=== PATIENT | male | born 1970 | race Caucasian/White ===

== ENCOUNTER 2017-06-16 06:35 | Inpatient (IN) | payer BC ==
[2017-05-29 09:18] VITALS: BMI 24.0
--- NOTE | 2017-05-29 09:49 | PAT Medication Instructions ---
Service Date May 29, 2017. Current Home Medication List Ascorbic Acid (Vitamin C), 1,000 MG PO QAM Fish Oil ([place]-3), 1 CAP PO QAM Multivitamin (Multivitamin), 1 TAB PO QAM Naproxen (Aleve), 660 MG PO QPM Medication Instructions For Your Scheduled Surgery - Check with surgeon for instructions: Naproxen (Aleve), 660 MG PO QPM - Hold the following medications 2 weeks prior to surgery: Fish Oil ([place]-3), 1 CAP PO QAM - Hold the following medications the morning of surgery: Multivitamin (Multivitamin), 1 TAB PO QAM Ascorbic Acid (Vitamin C), 1,000 MG PO QAM If you have any questions please call us at [phone] or [phone] or [phone]
--- NOTE | 2017-05-29 10:27 | DIAGNOSTIC IMAGING REPORT ---
CHEST PREADMISSION(PA/LAT) CLINICAL HISTORY: PAT preoperative evaluation COMPARISON STUDY: No previous studies for comparison. FINDINGS: The bones soft tissues and hemidiaphragms are normal. The cardiomediastinal silhouette is normal. The lungs are clear. The pulmonary vasculature is normal. IMPRESSION: Negative chest. The above report was generated using voice recognition software. It may contain grammatical, syntax or spelling errors. Electronically signed by: Alin Irizarry M.D. 05/29/2017 10:26 AM Dictated Date/Time: 05/29/2017 10:25 AM
[2017-05-29 10:36] LABS: BASO % 1.1 %; BASO ABS # 0.07 K/uL (0-0.2); COMPLETE YES; EOS % 1.6 %; HEMATOCRIT 44.7 % (42-52); LYMPH % 32.2 %; LYMPH ABS # 2.02 K/uL (1.2-3.4); MEAN CELL VOLUME 93.3 fL (80-100); MEAN CORPUSCULAR HEMOGLOBIN 32.2 pg (25-34); MEAN CORPUSCULAR HGB CONC 34.5 g/dl (32-36); MEAN PLATELET VOLUME 9.4 fL (7.4-10.4); MONO % 9.3 %; NEUT % 55.8 %; PLATELET COUNT 245 K/uL (130-400); RED BLOOD COUNT 4.79 M/uL (4.7-6.1); WHITE BLOOD COUNT 6.27 K/uL (4.8-10.8)
[2017-05-29 10:39] LABS: URINE APPEARANCE CLEAR (CLEAR); URINE BILIRUBIN NEG (NEG); URINE COLOR YELLOW; URINE NITRITE NEG (NEG); URINE SPECIFIC GRAVITY 1.026 (1.000-1.030); UROBILINOGEN NEG (NEG)
[2017-05-29 10:43] LABS: BUN/CREATININE RATIO 27.7 (10-20); CALCIUM 8.8 mg/dl (8.5-10.1); CREATININE 0.66 mg/dl (0.60-1.40); POTASSIUM 4.4 mmol/L (3.5-5.1)
[2017-05-29 10:44] LABS: MANUAL MICROSCOPIC REQUIRED? NO; REVIEW REQ? NO
[2017-05-29 10:49] LABS: PROTHROMBIN TIME (PATIENT) 10.7 SECONDS (9.0-12.0)
--- NOTE | 2017-06-15 13:31 | HISTORY & PHYSICAL EXAMINATION ---
DATE OF ADMISSION: 06/16/2017 CHIEF COMPLAINT: Primary osteoarthritis of the right hip. HISTORY OF PRESENT ILLNESS: Jeison is a pleasant 46-year-old male who has been having right hip pain for about 14 years. This has gotten progressively worse. He has been having a hard time doing activities that he enjoys including golfing and hunting due to the pain and discomfort. It bothers him on a daily basis. He has pain is located in his groin and he is now starting to walk with a limp. X-rays and clinical examination were diagnostic for severe osteoarthritis of the right hip and after failing conservative treatment, he elected to proceed with a right total hip arthroplasty. PAST MEDICAL HISTORY: Denies. PAST SURGICAL HISTORY: None. ALLERGIES: None. MEDICATIONS: Include Aleve as needed for pain. FAMILY HISTORY: Noncontributory. SOCIAL HISTORY: He is single, has 1-2 drinks a day. He has a 20-year history of chewing tobacco and remains active. REVIEW OF SYSTEMS: He complains of severe right hip and groin pain. All other pertinent review of systems is negative. PHYSICAL EXAMINATION: GENERAL: He is awake, alert and oriented x3. He is in no apparent distress. He is very pleasant. HEENT: Pupils are equal, round and reactive to light. Extraocular motion intact. Oral mucosa is pink and moist. HEART: Regular rate per radial pulse. LUNGS: [place] symmetrically bilaterally with no audible breath sounds. ABDOMEN: Soft, nontender, and nondistended. MUSCULOSKELETAL: On physical examination of his right hip, he ambulates independently, but does have limp. He has significantly decreased motion with his hip with only about 90 degrees of flexion, 20 degrees of external rotation and 5 degrees of internal rotation. He has severe pain with forced internal rotation of his hip. No back pain. His leg lengths are essentially equal. He is neurovascularly intact. IMAGING DATA: X-rays of the right hip do show advanced osteoarthritis with joint space collapse, subchondral sclerosis and osteophyte formation. IMPRESSION: Advanced osteoarthritis of the right hip. PLAN: We will proceed with a Biomet right total hip arthroplasty. Postoperatively, he will be started on aspirin for DVT prophylaxis and kept in the hospital for postoperative medical management. KAVITHA
[~2017-06-16] VITALS: Ht 167.6 cm; Wt 68.9 kg
[2017-06-16] VITALS (8 sets, daily range): BP systolic 109–144; BP diastolic 68–92; PULSE 57–78; TEMP 36.6–37; O2SAT 96–99; Ht 167.6 cm; Wt 68.9 kg
[~2017-06-16 06:35] MED LIST: ACETAMINOPHEN 500 MG TAB PO SCH; ASCO10003 PO; CEFAZOLIN 2000 MG/60 ML D5W 60 ML IV SCH; FAMOTIDINE 20 MG TAB PO SCH; GABAPENTIN 300 MG CAP PO SCH; LACTATED RINGER'S 1000ML 1,000 ML IV SCH; LACTATED RINGER'S 1000ML IV SCH; MULT-506 PO; NAPR1TAB9 PO; OMEG10007 PO; ROPIVACAINE 5MG/ML 30 ML 150 MG, BUPIVACAINE/EPINEPHR 0.5% MPF 30 ML, KETOROLAC TROMETH... INFIL SCH
--- NOTE | 2017-06-16 06:43 | History & Physical Bridge Note ---
H&P Re-Evaluation Bridge Note: I have examined the patient, reviewed the History & Physical and in the interval since the performance of the History & Physical I have noted the following changes of clinical significance: No changes noted
[2017-06-16] MEDS ORDERED: EpHEDrine SULFATE INJ 50 MG/ML AMP IV PRN (07:15)
[2017-06-16] MEDS ORDERED: ATROPINE SULFATE 0.1 MG/ML 5ML SYR IV PRN (07:15)
[2017-06-16] MEDS ORDERED: FENTANYL CITRATE INJ 50 MCG/1 ML 2 ML VIAL IV PRN (07:15)
[2017-06-16] MEDS ORDERED: ONDANSETRON INJ 2 MG/ML 2 ML VIAL IV PRN ×2 (07:15→11:30)
[2017-06-16] MEDS ORDERED: BUPIVACAINE 0.5 % 5 MG/1 ML PF 10ML VIAL ONE (07:24)
[2017-06-16] MEDS ORDERED: MIDAZOLAM HCL 1 MG/ML 2ML VIAL ONE ×3 (08:35→10:34)
[2017-06-16] MEDS ORDERED: FENTANYL CITRATE INJ 50 MCG/1 ML 2 ML VIAL ONE (08:35)
[2017-06-16] MEDS: TRANEXAMIC ACID INJ 1,000 MG in SODIUM CHLORIDE 0.9% 100ML 100 ML IV SCH ×2 (09:11→13:39)
[2017-06-16] MEDS ORDERED: ORTHO JOINT ANESTHETIC ONE (09:22)
[2017-06-16] MEDS ORDERED: BACITRACIN 50000 UNIT VIAL ONE (09:22)
[2017-06-16] MEDS ORDERED: PROPOFOL IV EMULSION 10 MG/ML 20 ML VIAL IV ONE (10:14)
[2017-06-16] MEDS ORDERED: PHENYLEPHRINE 100MCG/ML 5ML SYR ONE (10:14)
[2017-06-16] MEDS ORDERED: LIDOCAINE HCL 2% 2 ML VIAL (20MG/ML) ONE (10:14)
[2017-06-16] MEDS ORDERED: SILVER SULFADIAZINE 1% CR 50 GM JAR EXT PRN (11:30)
[2017-06-16] MEDS ORDERED: OXYCODONE HCL IR 5 MG TAB (IMMEDIATE RELEASE) PO PRN (11:30)
[2017-06-16] MEDS ORDERED: METOCLOPRAMIDE HCL INJ 5 MG/ML 2 ML VIAL IV PRN (11:30)
[2017-06-16] MEDS ORDERED: SOD PHOSPHATE/SOD BIPHOSPHATE ENEMA 132 ML BTL PR PRN (11:30)
[2017-06-16] MEDS ORDERED: MAGNESIUM HYDROXIDE SUSP 30 ML UDC PO PRN (11:30)
[2017-06-16] MEDS ORDERED: MoRPHine SULFATE 2 MG/ML CARP IV PRN (11:30)
[2017-06-16] MEDS ORDERED: BISACODYL 10 MG SUPP PR PRN (11:30)
--- NOTE | 2017-06-16 11:30 | [facility] Post Operative Brief Note ---
Immediate Operative Summary Operative Date Jun 16, 2017. Pre-Operative Diagnosis advanced osteoarthritis right hip Post-Operative Diagnosis advanced osteoarthritis right hip Procedure(s) Performed Right Anterior Total Hip Arthroplasty Surgeon Dr. Zach Franklin Drapery Installer Surgeon(s) Reese Umanzor PA-C Estimated Blood Loss 250mL Findings as above Specimens Permanent: A. Right Femoral Head Complication(s) None Disposition Recovery Room / PACU
--- NOTE | 2017-06-16 11:39 | DIAGNOSTIC IMAGING REPORT ---
INTRAOPERATIVE RIGHT HIP 3 VIEWS CLINICAL HISTORY: Total anterior hip arthroplasty COMPARISON STUDY: Outside radiograph dated 05/08/2017 FINDINGS: 3 intraoperative fluoroscopic spot images are provided for interpretation. 42 seconds of fluoroscopic time was utilized. These images demonstrate a total right hip arthroplasty. IMPRESSION: Intraoperative radiographs performed during a total right hip arthroplasty. Electronically signed by: Usman Celaya M.D. 06/16/2017 11:37 AM Dictated Date/Time: 06/16/2017 11:37 AM
--- NOTE | 2017-06-16 12:06 | DIAGNOSTIC IMAGING REPORT ---
RIGHT PELVIS/UNILATERAL HIP 1 VIEW CLINICAL HISTORY: 46 years-old Male presenting with status post right total hip arthroplasty. TECHNIQUE: Single frontal view of the pelvis and crosstable lateral view of the right hip were obtained. COMPARISON: Fluoroscopic images performed earlier the same day. FINDINGS: There has been interval total right hip arthroplasty. Surgical drain and skin danielle in place. Expected subcutaneous emphysema. No acute fracture or apparent hardware complication. No malalignment. Left hip grossly normal. IMPRESSION: Expected postsurgical changes status post right total hip arthroplasty. Electronically signed by: Romeo Grant M.D. 06/16/2017 12:04 PM Dictated Date/Time: 06/16/2017 12:03 PM
--- NOTE | 2017-06-16 12:37 | Anesthesiology Progress Note ---
Anesthesia Post Op Note Date & Time Jun 16, 2017 at 12:37 Vital Signs Pain Intensity: 0 Vital Signs Past 12 Hours Date Time Temp Pulse Resp B/P (MAP) Pulse Ox O2 Delivery O2 Flow Rate FiO2 06/16/17 12:25 56 16 105/68 99 Room Air 06/16/17 12:15 57 16 98/70 99 Room Air 06/16/17 12:05 57 18 96/63 100 Room Air 06/16/17 11:55 55 18 90/57 98 Room Air 06/16/17 11:47 36.2 65 18 95/61 98 Oxymask 10 06/16/17 07:02 36.7 78 20 144/92 (109) 98 Room Air Notes Mental Status: alert / awake / arousable, participated in evaluation Pt Amnestic to Procedure: Yes Nausea / Vomiting: adequately controlled Pain: adequately controlled Airway Patency, RR, SpO2: stable & adequate BP & HR: stable & adequate Hydration State: stable & adequate Neuraxial Anesthesia: was administered, sensory block is resolving Anesthetic Complications: no major complications apparent
[2017-06-16] MEDS: SODIUM CHLORIDE 0.9% 1000ML 1,000 ML IV SCH ×2 (13:56→22:04)
[2017-06-16] MEDS: ACETAMINOPHEN IV 1,000 MG in EMPTY BAG 0 ML IV SCH ×2 (17:51→23:02)
[2017-06-16] MEDS: KETOROLAC TROMETHAMINE 30 MG/ML VIAL IV. SCH ×2 (17:52→23:01)
[2017-06-16] MEDS: CEFAZOLIN IV 1,000 MG in DEXTROSE 5% 50ML 50 ML IV SCH (18:52)
[2017-06-16] MEDS: DOCUSATE SODIUM 100 MG CAP PO SCH (20:24)
[2017-06-16] MEDS: ASPIRIN 325 MG ECTAB PO SCH (20:24)
[2017-06-16] MEDS: SENNA 8.6 MG TAB PO SCH (20:24)
--- NOTE | 2017-06-16 22:10 | OPERATIVE REPORT ---
DATE OF OPERATION: 06/16/2017 PREOPERATIVE DIAGNOSIS: Severe osteoarthritis of the right hip. POSTOPERATIVE DIAGNOSIS: Same. PROCEDURE: Right total hip arthroplasty. SURGEON: Dr. Zach Franklin. ENGINE REPAIRER PRODUCTION: Wang Umanzor PA-C, whose assistance was necessary for positioning of the leg and helping with retraction and closure. ANESTHESIA: Spinal. COMPLICATIONS: None. CONDITION: Stable to PACU. INDICATIONS: Jeison is a pleasant 46-year-old male who has been dealing with a 10-year history of severe right hip and groin pain. X-rays and clinical examination were diagnostic for primary osteoarthritis of the right hip. After failing years of conservative treatment, he elected to proceed with a right total hip arthroplasty. OPERATION AND FINDINGS: On 06/16/2017 he arrived at [facility] for the above procedure. He was seen in the preoperative holding area and the operative extremity was identified and signed. He was given a preoperative antibiotic and a spinal anesthetic. He was taken back to the operating room, laid on the table in supine position and given basic sedation. The right hip was brought to a Purist leg positioner. The right hip was then prepped and draped in sterile fashion. Time-out was done and the patient and operative extremity was properly identified. An anterior approach was used. Dissection was taken down through the tensor and the tensor muscle belly was retracted laterally and the rectus was retracted medially. The circumflex vessels were ligated. The capsule was exposed. The capsule was then incised and tagged for later repair. The femoral neck was then cut and the femoral head was removed. The acetabulum was then exposed. Time was spent doing a complete circumferential capsular and labral release. Sequential reaming up to a size 49 reamer was done. I gave good circumferential bleeding bone. Reaming was done under fluoroscopy to ensure adequate alignment. A size 50 pressfit cup was then impacted into place. A single 20 mm screw was placed. A neutral E-poly liner was then snapped into place. Final x-ray of the acetabulum showed anatomic alignment. The proximal femur was then exposed, sequential broaching up to a size 14 broach was done. A standard neck and a 36 mm -3 head were trialed. The hip was reduced, again fluoroscopic images showed anatomic alignment. The hip was then dislocated, trials were removed. The final size 14 standard offset Taperloc stem was impacted into place followed by a 36 mm -3 ceramic head. The hip was then reduced and final fluoroscopic images showed anatomic alignment. The surrounding soft tissues were injected with 100 mL orthopedic pain control cocktail. The wound was then irrigated with 3 liters of normal saline solution with bacitracin. The capsule was then repaired with #1 Vicryl suture and a drain was placed. The fascia was then closed with #1 PDS suture and skin was closed with 2-0 Vicryl, 3-0 V-Loc suture and danielle. He was then placed in a soft dressing and taken to the postanesthesia care unit in stable condition. He tolerated the procedure well. IMPLANTS USED: I used a Biomet Taperloc total hip arthroplasty system with a size 50 G7 cup with a single 20 mm screw, a 36 mm neutral E-poly liner, a size 14 standard offset Taperloc stem, and a 36 mm -3 ceramic head. I attest to the content of the Intraoperative Record and any orders documented therein. Any exception s are noted below.
[2017-06-17] MEDS: CEFAZOLIN IV 1,000 MG in DEXTROSE 5% 50ML 50 ML IV SCH (01:58)
[2017-06-17 02:43] VITALS: BP 105/63; PULSE 61; TEMP 36.6; O2SAT 98
[2017-06-17] MEDS: KETOROLAC TROMETHAMINE 30 MG/ML VIAL IV. SCH ×4 (05:22→23:22)
[2017-06-17] MEDS: SODIUM CHLORIDE 0.9% 1000ML 1,000 ML IV SCH ×2 (05:22→07:30)
[2017-06-17] MEDS ORDERED: ROPIVACAINE 5MG/ML 30 ML 150 MG, BUPIVACAINE/EPINEPHR 0.5% MPF 30 ML, KETOROLAC TROMETH... INFIL SCH ×7 (06:00)
[2017-06-17 06:16] LABS: BASO % 0.3 %; BASO ABS # 0.04 K/uL (0-0.2); COMPLETE YES; EOS % 0.2 %; HEMATOCRIT 36.4 % (42-52); IG% 0.3 %; LYMPH % 16.1 %; LYMPH ABS # 2.14 K/uL (1.2-3.4); MEAN CELL VOLUME 91.7 fL (80-100); MEAN CORPUSCULAR HEMOGLOBIN 32.5 pg (25-34); MEAN CORPUSCULAR HGB CONC 35.4 g/dl (32-36); MEAN PLATELET VOLUME 9.3 fL (7.4-10.4); MONO % 8.2 %; NEUT % 74.9 %; PLATELET COUNT 217 K/uL (130-400); RED BLOOD COUNT 3.97 M/uL (4.7-6.1); WHITE BLOOD COUNT 13.26 K/uL (4.8-10.8)
[2017-06-17 06:45] LABS: BUN/CREATININE RATIO 16.8 (10-20); CALCIUM 8.4 mg/dl (8.5-10.1); CREATININE 0.74 mg/dl (0.60-1.40); POTASSIUM 3.6 mmol/L (3.5-5.1)
[2017-06-17 07:11] VITALS: BP 96/60; PULSE 64; TEMP 36.4; O2SAT 96
[2017-06-17] MEDS: DOCUSATE SODIUM 100 MG CAP PO SCH ×2 (09:00→21:03)
[2017-06-17] MEDS: PANTOprazole SOD 40 MG TAB PO SCH (09:00)
--- NOTE | 2017-06-17 09:43 | PROGRESS NOTE ---
DATE: 06/17/2017 CHIEF COMPLAINT: Status post right total hip arthroplasty postop day #1. PROGRESS: Jeison was seen and examined at bedside today. Overall, he is doing very well. He says he really has no pain in the hip. He has been up and ambulating. He has no complaints. PHYSICAL EXAMINATION: RIGHT HIP: The dressing is clean and dry, and the drain is to suction. He has active dorsiflexion and plantarflexion of his right ankle, and his femoral nerve is intact. LABORATORY DATA: He has an H&H today of 12.9 and 36.4. His glucose is 95. His vital signs are all stable on room air. He is voiding on his own. X-rays postoperatively of the right hip show the prosthesis to be anatomical alignment without any evidence of fracture, dislocation or loosening. IMPRESSION: Status post right total hip arthroplasty postop day #1. PLAN: At this point, he is doing very well. Will continue ambulation and pain control today. He is on aspirin 325 mg twice a day for DVT prophylaxis. Tomorrow morning, the nursing staff can change the dressing and pull the drain, and we will likely discharge him to home with [facility].
[2017-06-17 09:45] VITALS: BP 111/74; PULSE 70; O2SAT 99
[2017-06-17] MEDS: ASPIRIN 325 MG ECTAB PO SCH ×2 (10:26→21:03)
[2017-06-17] MEDS: MULTIVITAMIN TAB PO SCH (10:28)
[2017-06-17] MEDS: ACETAMINOPHEN IV 1,000 MG in EMPTY BAG 0 ML IV SCH (10:29)
[2017-06-17 11:00] VITALS: BP 107/68; PULSE 65; TEMP 36.7; O2SAT 100
[2017-06-17] MEDS: ACETAMINOPHEN 500 MG TAB PO SCH ×2 (14:07→21:43)
[2017-06-17 15:45] VITALS: BP 103/65; PULSE 64; TEMP 36.7; O2SAT 100
[2017-06-17] MEDS: SENNA 8.6 MG TAB PO SCH (21:03)
[2017-06-17 22:59] VITALS: BP 108/55; PULSE 71; TEMP 36.8; O2SAT 96
[2017-06-18] MEDS: ACETAMINOPHEN 500 MG TAB PO SCH (05:57)
[2017-06-18] MEDS: KETOROLAC TROMETHAMINE 30 MG/ML VIAL IV. SCH (05:57)
[2017-06-18 06:31] VITALS: BP 116/76; PULSE 68; TEMP 36.6; O2SAT 99
[2017-06-18] MEDS: DOCUSATE SODIUM 100 MG CAP PO SCH (07:28)
[2017-06-18] MEDS: ASPIRIN 325 MG ECTAB PO SCH (07:29)
[2017-06-18] MEDS: PANTOprazole SOD 40 MG TAB PO SCH (07:29)
[2017-06-18] MEDS: MULTIVITAMIN TAB PO SCH (07:29)
[2017-06-18 09:04] VITALS: BP 122/79; PULSE 84; O2SAT 97
[2017-06-18] MEDS ORDERED: RXC5 PO (09:55)
[2017-06-18] MEDS ORDERED: ASPEC325 PO (09:55)
--- NOTE | 2017-06-18 09:56 | Discharge Instructions ---
Discharge Instructions Date of Service Jun 18, 2017. Admission Reason for Admission: Right Hip Degenerative Joint Disease Discharge Discharge Diagnosis / Problem: Right Total Hip Discharge Goals Goal(s): Decrease discomfort, Improve function Activity Recommendations Activity Limitations: as noted below . Instructions / Follow-Up Instructions / Follow-Up Activity and Therapy Recommendations: * If you are using [facility] then Physical Therapy will be provided until they feel you are ready to start Outpatient Physical Therapy. If you are not using a Home Health agency then Outpatient Physical Therapy should start about 3-5 days from your day of surgery. Therapy will last about 3-6 weeks * You were shown a series of exercises in the hospital. Do these exercises three times each day including the exercises you were shown in physical therapy. * Get up and walk several times each day.~ For the first four weeks, try not to stand or walk for more than one hour at a time. If you do stand or walk for more than one hour, you will not hurt anything, but your leg will likely swell.~ ~ * As you feel comfortable, you may change from the walker or crutches to a cane and~then to independent walking. Medications: * Narcotic You will likely be sent home from the hospital with a prescription for the narcotic pain medication that worked best throughout your stay. * Aspirin Most patients will be required to take Aspirin 325mg twice a day for 6 weeks after surgery. This is obtained [id number] and a prescription is not necessary. * Other medications may be prescribed for specific circumstances. If you have any questions, please call the office at . * Resume previous home medications unless otherwise instructed TEDs/Elastic Stockings: The white elastic stockings help limit swelling and prevent blood clots from forming in your legs. The more you wear them, the more they work. Wear them for six weeks. Showering: You may shower 5 days from the day of surgery. Let the soapy shower water run over the danielle. Do not scrub or soak the dressing or the incision. Things To Watch For: * Drainage from the incision site that occurs more than one week after your surgery. * Increased redness at the incision site. * Fever above 102 degrees Fahrenheit. * Unusual chest pain or shortness of breath. * Call [facility] at with any of the above problems Follow-Up Visit: Follow-up with Dr. Franklin 2-3 weeks after your day of surgery. An appointment was probably scheduled when you signed-up for surgery in the office. If you have any questions call Office Instructions: More detailed instructions as well as Frequently Asked Questions were provided in a folder by our office when you signed-up for surgery. Please review these instructions when you get home. If you have any further questions or concerns, please feel free to call the office at [phone] Current Hospital Diet Patient's current hospital diet: Regular Diet Discharge Diet Recommended Diet: Regular Diet Procedures Procedures Performed: Right Anterior Total Hip Arthroplasty Pending Studies Studies pending at discharge: no Medical Emergencies . Who to Call and When: Medical Emergencies: If at any time you feel your situation is an emergency, please call [phone] immediately. . Non-Emergent Contact Non-Emergency issues call your: Surgeon Call Non-Emergent contact if: wound has increased drainage, wound has increased redness . "Provider Documentation" section prepared by Zach Franklin. . VTE Core Measure Inpt VTE Proph given/why not?: Other Anticoagulation (Aspirin 325 twice a day for 6 weeks)
--- NOTE | 2017-06-18 10:36 | PROGRESS NOTE ---
DATE: 06/18/2017 CHIEF COMPLAINT: Status post right total hip arthroplasty postop day #2. PROGRESS: Jeison was seen and examined at bedside today. Overall, he is doing very well. He is ambulating well with physical therapy. He has no complaints. PHYSICAL EXAMINATION: RIGHT HIP: The dressing has been changed and drain has been pulled. His leg lengths are equal. He is neurovascularly intact. IMPRESSION: Status post right total hip arthroplasty postop day #2. PLAN: At this point, he is doing very well and he is happy with his progress. He is working well with physical therapy and his pain is controlled. We will discharge him to home later this morning.
[2017-06-18 10:56] VITALS: BP 116/76; PULSE 68; TEMP 36.6; O2SAT 99
--- NOTE | 2017-06-18 23:28 | DISCHARGE SUMMARY ---
DISCHARGE DIAGNOSIS: Primary osteoarthritis of the right hip. PROCEDURE: Right total hip arthroplasty on 06/16/[address] Zach Franklin. DISCHARGE INSTRUCTIONS: 1. Aspirin 325 mg twice a day for 6 weeks. 2. Oxycodone 5-10 mg every 4 hours as needed for pain. 3. Vitamin C 1000 mg daily. 4. [place]-3 fish oil. 5. Aleve as needed for pain. 6. Weightbear as tolerated. 7. Follow up with Dr. Franklin in 2 weeks. 8. Call the office of Dr. Franklin with any questions or concerns. HOSPITAL COURSE: Jeison is a pleasant 46-year-old male who presented to my office with severe osteoarthritis of the right hip. After failing extensive conservative treatment, he elected to proceed with a right total hip arthroplasty. [facility] hip replacement without complications. He had a spinal anesthetic. Postoperatively, he was started on aspirin 325 mg twice a day for DVT prophylaxis and discharged to general orthopedic floors. His hospital course was uneventful. On postop day #1, his H&H was stable at 12.9 and 36.4. He was able to ambulate well with physical therapy. His pain was controlled. On postop day #2, the dressing was changed, the drain was pulled. He continued to do very well and was subsequently discharged to home on oral pain medications, [facility] and the above instructions.
== END 2017-06-18 11:23 | disposition home health service (06) | DRG 470 ==
LOC: C.ACU 06:35 → C.3E 11:33 → ENRESERV 12:29
PROVIDERS: ADMIT Orthopaedic Surgery; ATTEND Orthopaedic Surgery
PROC: 0SR904Z Replacement of Right Hip Joint with Ceramic on Polyethylene Synthetic Substitute, Open Approach (ICD-10-PCS; principal; 2017-06-16 09:20)
DX: M16.11 Unilateral primary osteoarthritis, right hip (principal); Z72.0 Tobacco use; Z79.1 Long term (current) use of non-steroidal anti-inflammatories (NSAID)